=== PATIENT | male | born 1945 | race Two or more races ===

== ENCOUNTER 2018-10-31 18:44 | Emergency (ER) | payer SELFPAY ==
[2018-10-31 19:06] VITALS: BP 140/83
--- NOTE | 2018-10-31 20:24 | UC ---
Laceration HPI - HPI Summary HPI Summary: 73 y/o male presents to the urgent care c/o Left foot- stepped on nail, went through shoe. Today at 1500. - History Of Current Complaint Chief Complaint: UCLowerExtremity Stated Complaint: STUCK BY A NAIL Time Seen by Provider: 10/31/18 20:21 Hx Obtained From: Patient Pain Intensity: 0 - Allergies/Home Medications Allergies/Adverse Reactions: Allergies Allergy/AdvReac Type Severity Reaction Status Date / Time No Known Allergies Allergy Verified 10/31/18 19:06 Home Medications: Home Medications Tamsulosin CAP* [Flomax CAP*] 500 mcg PO DAILY 10/31/18 [History Confirmed 10/31] PMH/Surg Hx/FS Hx/Imm Hx - Surgical History Surgical History: None - Social History Alcohol Use: None Substance Use Type: None Smoking Status (MU): Never Smoked Tobacco Physical Exam Vital Signs: Initial Vital Signs Temp 98.6 F 10/31/18 19:01 Pulse 72 10/31/18 19:01 Resp 12 10/31/18 19:01 BP 140/83 10/31/18 19:01 Pulse Ox 100 10/31/18 19:01 Laceration Course/Dx - Differential Dx - Laceration/Wound Differental Diagnoses: Abrasion, Cellulitis, Laceration, Puncture Wound, Tendon Laceration - Diagnosis Provider Diagnosis: Puncture wound of left foot, Elevated BP without diagnosis of hypertension Discharge - Sign-Out/Discharge Documenting (check all that apply): Patient Departure - d/C home All imaging exams completed and their final reports reviewed: No Studies - Discharge Plan Condition: Stable Disposition: HOME Patient Education Materials: Puncture Wound (ED) Referrals: [facility] [place] [facility] [place] [facility] [Outside] - 3 Days Additional Instructions: 1-Please take full course of Antibiotic. Take yogurt w/ probiotics or Culturelle to protect your GI system 2- If redness and swelling doubles in size beyond after 48 hrs of taking antibiotic and fever develops please go to the ER immediately. 3-Avoid standing for long periods of time or flexing your foot, keep it elevated and keep wound clean and dry. Apply Bacitracin oint as directed 4-Please F/u with your PCP in 3 days if not improvement for further evaluation and treatment. 5- Your BP is elevated today. please decrease salt in your diet, monitor BP and if it continues to be elevated please f/u with your PCP for further management. - Billing Disposition and Condition Condition: STABLE Disposition: Home
[2018-10-31] MEDS ORDERED: Ciprofloxacin TAB* 500 MG PO ONE (20:55)
[2018-10-31] MEDS ORDERED: Tetan/Diph/Pertus SYR(Tdap)* 0.5 ML SYR(BOOSTRIX) use SYR IM ONE (20:55)
== END 2018-10-31 21:00 | disposition home or self-care (01) ==
LOC: UCEAST 18:44
DX: S91.331A Puncture wound without foreign body, right foot, initial encounter (principal); R03.0 Elevated blood-pressure reading, without diagnosis of hypertension; W45.0XXA Nail entering through skin, initial encounter; Y92.9 Unspecified place or not applicable
CPT/HCPCS: 90471; 90715; 99202; A9270-GY; G0463